=== PATIENT | female | born 1965 | race Hispanic/Latino ===

== ENCOUNTER 2021-04-27 10:53 | Outpatient (CLI) | payer OTHER | END 2021-04-27 10:54 | disposition home or self-care (01) | LOC: PF 10:53 | PROVIDERS: ATTEND Internal Medicine | DX: J44.9 Chronic obstructive pulmonary disease, unspecified (principal); E10.10 Type 1 diabetes mellitus with ketoacidosis without coma; E10.8 Type 1 diabetes mellitus with unspecified complications; R65.21 Severe sepsis with septic shock; I48.0 Paroxysmal atrial fibrillation | CPT/HCPCS: 94010 ==